=== PATIENT | male | born 1940 | race Caucasian/White ===

== ENCOUNTER 2024-09-24 19:27 | Emergency (ER) | payer OTHER, SELFPAY ==
[2024-09-24 19:30] VITALS: BP 168/80
--- NOTE | 2024-09-24 21:15 | ED.GENMED ---
History of Present Illness
General
Chief Complaint: Bowel Problem
Source: patient and family
Exam Limitations: none
Time Seen by Provider: 09/24/24 20:40
History of Present Illness
History of Present Illness:
84-year-old male presents emergency department due to constipation. He states he has not had normal bowel movement for the past 36 hours. He feels he is bound up and cannot go, like he has a baseball bat up there.
Past History
Past History
ED Past Medical History: COPD, HTN and Hypercholesterolemia
ED Past Surgical History: Appendectomy
Social History
Tobacco: Former smoker
Phy Exam
Physical Exam
Physical Exam:
Physical Exam
General: no apparent distress, not acutely ill
Neck: supple. no meningeal signs. normal posterior pharynx
Heart: s1/s2 regular rate and rhythm, no murmur. equal radial
pulses.
HEENT: Pupils equal round reactive to light, EOMI
Lungs: no acute respiratory distress. clear bilaterally
Abdomen: normal bowel sounds. not tender. no CVAT, rectal exam shows impacted stool, disimpacted
Neuro: alert and oriented. no focal neurological deficits cranial nerves II through XII intact
Skin: no rash
Psychiatric: well kept. interactive and cooperative
Extremities: no edema. no calf tenderness. negative homans. good distal pulses
Course
Orders/Labs/Results
Orders:
Orders
09/24/24 21:11
Magnesium Citrate [Citroma] 300 ml .ROUTE .STK-MED ONE
09/24/24 21:13
Magnesium Citrate [Citroma] 300 ml PO ONCE ONE
Vital Signs
Initial and Last Documented VS:
Initial Vital Signs
Temp Pulse Resp BP Pulse Ox
98.1 F 118 24 168/80 98
09/24/24 19:30 09/24/24 19:30 09/24/24 19:30 09/24/24 19:30 09/24/24 19:30
Last Documented Vital Signs
Temp Pulse Resp BP Pulse Ox
98.1 F 118 24 168/80 98
09/24/24 19:30 09/24/24 19:30 09/24/24 19:30 09/24/24 19:30 09/24/24 19:30
MDM/Problems Addressed
Differential Diagnosis Includes:
Bowel obstruction
MDM/Problems Addressed:
84-year-old male with fecal impaction, disimpacted and given magnesium citrate. Stable for discharge.
Chronic conditions affecting care: Cancer (colon)
*Pulse Oximetry
Patient hypoxic: no
*Critical Care Note
Total Time (30-74mins, 75-104mins- exclusive of procedures): Not Applicable
Data Reviewed
Further Testing Considered But Not Given:
ct a/p not indicated
Patient Management
Social determinants of health affecting care: Living situation and Strong social support
Escalation/DeEscalation of care consider admission/obs:
admit not indicated
ED Attending Note
-
Portions of this chart may have been created with voice recognition software.� Occasional wrong word or��sound alike� substitutions may have occurred due to the inherent limitations of voice recognition software.
Discharge Plan
Departure
Patient Disposition: Home (Routine Discharge)
Date of Disposition: 09/24/24
Time of Disposition: 21:14
Patient with high blood pressure during this ER visit?: Yes
Condition: Good
Discharge Problem:
Fecal impaction
Instructions: Constipation, Adult (DC), Fecal Impaction (DC), BLOOD PRESSURE
Prescriptions:
No Action
ezetimibe 10 MG tablet
10 mg PO DAILY
umeclidinium-vilanterol [Anoro Ellipta] 1 EACH blister with device
1 inh inhalation R DAILY
lisinopril 20 MG tablet
40 mg PO DAILY
amlodipine 5 MG tablet
5 mg PO DAILY
hydrochlorothiazide 12.5 MG tablet
12.5 mg PO DAILY
Activity Restrictions/Additional Instructions:
Follow up with primary care. Return for any concerns.
Interventions
Interventions:
*Risk Screen - Suicide Last Done: 09/24/24 19:30
*Neglect/Abuse Screening Last Done: 09/24/24 19:30
*Nursing Disposition Last Done: 09/24/24 21:37
[facility]ed[facility] Assessment Last Done: 09/24/24 21:37
Discharge Date and Time
Discharge Date/Time: 09/24/24 21:38
Print Language: BANGLADESHI
[2024-09-24] MEDS: CITROMA 300 ML PO (21:22)
== END 2024-09-24 21:38 | disposition home or self-care (01) ==
LOC: EMR 19:27
PROVIDERS: EMERGENCY PHYSICIAN Emergency Medicine; FAMILY PHYSICIAN Nurse Practitioner Family
DX: K56.41 Fecal impaction (principal); J44.9 Chronic obstructive pulmonary disease, unspecified; I10 Essential (primary) hypertension; E78.00 Pure hypercholesterolemia, unspecified; Z87.891 Personal history of nicotine dependence; C18.9 Malignant neoplasm of colon, unspecified
CPT/HCPCS: 99283

== ENCOUNTER 2025-08-24 12:15 | Emergency (ER) | payer OTHER, SELFPAY ==
[2025-08-24 12:21] VITALS: BP 147/68
[2025-08-24 12:33] VITALS: BP 162/66
[2025-08-24 12:50] LABS: Hematocrit 43.9 % (39.0-52.0); Hemoglobin 15.3 g/dL (13.0-18.0); Mean Corp Hgb Conc. 34.9 g/dL (33.0-37.0); Mean Corpuscular Volume 86.4 fL (80.0-94.0); Nucleated Red Blood Cells % 0 % (-); Platelet Count 131 10^3/uL (130-400); Red Cell Dist. Width 12.5 % (11.5-14.5)
[2025-08-24 13:03] LABS: ALT (SGPT) 35 U/L (0-50); AST (SGOT) 31 U/L (17-59); Albumin 4.2 g/dl (3.5-5.0); Alkaline Phosphatase 79 U/L (38-126); Blood Urea Nitrogen 38 mg/dl (9-20); Calcium 8.7 mg/dl (8.4-10.2); Carbon Dioxide 30 mmol/L (22-30); Chloride 91 mmol/L (98-107); Estimated Creatinine Clearance 55 ml/min; Glucose 218 mg/dl (70-99); Potassium 4.2 mmol/L (3.5-5.1); Sodium 129 mmol/L (135-145); Total Protein 6.7 g/dl (6.3-8.2); eGFR > 60.00
--- NOTE | 2025-08-24 13:08 | ED.GENMED ---
History of Present Illness
General
Chief Complaint: Breathing Problem
Time Seen by Provider: 08/24/25 12:35
History of Present Illness
History of Present Illness:
85-year-old male with history of high blood pressure, diabetes, COPD presenting for difficulty breathing. Patient reports cough and increased work of breathing for the past 5 days. Denies any fever. Cough has been nonproductive, has difficulty
expectorating. Denies any associated chest pain. Denies known sick contacts, however feels symptoms started after going to an urgent care on Wednesday for sciatica. He has been on antibiotics for the sciatica. Denies abdominal pain or GI symptoms.
Denies any O2 requirements. Denies additional acute medical complaints
Past History
Past History
ED Past Medical History: COPD, HTN and Hypercholesterolemia
ED Past Surgical History: Appendectomy
Social History
Tobacco: Former smoker
Phy Exam
Physical Exam
Physical Exam:
General: Well-appearing, no clinical signs of dehydration, nontoxic and in no acute distress
HEENT: protecting airway
Neck: appears supple
CV: Normal heart rate, regular rhythm
Resp: No accessory muscle use, active cough, rhonchi and wheezing bilaterally
Abd: No distention
Extremities: No deformities, no swelling
Neuro: alert, no focal neurologic deficit
: deferred
Rectal: deferred
Psych: Normal affect
Skin: Intact
Scores
Heart Failure Risk
Heart Failure Risk Score: Not Applicable
Course
Orders/Labs/Results
Orders:
Orders
08/24/25 12:29
Electrocardiogram (*1) Urgent
Reason for Study: Shortness of Breath
CXR2 [CR Chest - 2 Views ] Urgent
Comment:
Reason For Exam: COUGH sob
08/24/25 12:30
EKG- Treatment ONCE
08/24/25 12:42
Electrocardiogram (*1) Urgent
Reason for Study: Other
Other Reason for Exam: Respiratory Distress
08/24/25 12:43
Complete Blood Count/With Diff Urgent
Comprehensive Metabolic Panel Urgent
NT-proBNP Urgent
08/24/25 12:55
Ipratropium/Albuterol Sulfate [Duoneb] 3 ml INH R NOW STA
08/24/25 13:25
COVID-19 Antigen Urgent
Source: Nasal Swab
Influenza A+B Rapid Molecular Urgent
COURTNEY Source: Nasal Swab
Specimen Description:
Abnormal Lab Results
08/24/25
12:43
WBC 11.6 H 10^3/uL
(4.8-10.8)
Abs Immat Gran (auto) 0.1 H 10^3/uL
(0-0.05)
Absolute Neuts (auto) 10.2 H 10^3/uL
(1.4-6.5)
Absolute Lymphs (auto) 0.6 L 10^3/uL
(1.2-3.4)
Absolute Monos (auto) 0.7 H 10^3/uL
(0.1-0.6)
Neutrophils % 87.9 H %
(42.2-75.2)
Lymphocytes % 4.9 L %
(20.5-51.1)
Sodium 129 L mmol/L
(135-145)
Chloride 91 L mmol/L
(98-107)
BUN 38 H mg/dl
(9-20)
Glucose 218 H mg/dl
(70-99)
08/24/25 12:43
08/24/25 12:43
Vital Signs
Initial and Last Documented VS:
Initial Vital Signs
Temp Pulse BP Pulse Ox
97.8 F 107 147/68 97
08/24/25 12:21 08/24/25 12:21 08/24/25 12:21 08/24/25 12:21
Last Documented Vital Signs
Temp Pulse Resp BP Pulse Ox
97.8 F 101 24 130/69 94
08/24/25 12:21 08/24/25 15:46 08/24/25 15:46 08/24/25 15:00 08/24/25 15:46
MDM/Problems Addressed
MDM/Problems Addressed:
85-year-old male with history of COPD presenting for cough and shortness of breath. Vital signs on arrival are significant for mild tachycardia.
On exam, patient in no respiratory distress. Wheezing and rhonchi bilaterally. Concern for COPD exacerbation versus possible underlying pneumonia. Plan for laboratory analysis and chest x-ray imaging as well as viral swabs. Will start on DuoNeb.
15:10 - Patient is positive for the flu. No obvious infiltrate on chest x-ray. Patient ambulated without any desaturation, no increased work of breathing. Ultimately feel stable for discharge. Given patient's cough with known COPD, will start on
azithromycin, steroids, and inhaler. Otherwise advised supportive therapy for influenza. Patient out of the window for Tamiflu. Return precautions discussed and patient verbalized understanding
*Pulse Oximetry
SaO2: 96
Oxygen Mode of Delivery: Room air
Patient hypoxic: no
*Critical Care Note
Total Time (30-74mins, 75-104mins- exclusive of procedures): Not Applicable
ED Attending Note
-
Portions of this chart may have been created with voice recognition software.� Occasional wrong word or��sound alike� substitutions may have occurred due to the inherent limitations of voice recognition software.
Discharge Plan
Departure
Patient Disposition: Home (Routine Discharge)
Date of Disposition: 08/24/25
Time of Disposition: 15:18
Patient with high blood pressure during this ER visit?: No
Condition: Good
Discharge Problem:
Influenza A, COPD exacerbation
Instructions: Flu in adults (DC), COPD exacerbation (DC)
Prescriptions:
New
albuterol sulfate [Ventolin HFA] 90 mcg/actuation HFA aerosol inhaler
2 puff inhalation Q6H PRN (Reason: shortness of breath or wheezing) Qty: 8.5 0RF
prednisone 50 mg tablet
50 mg PO DAILY 5 Days Qty: 5 0RF
azithromycin [Zithromax Z-Chan] 250 mg tablet
250 mg PO DAILY 6 Days Qty: 6 0RF
No Action
acetaminophen [Tylenol Extra Strength] 500 mg Tablet
1,000 mg PO DAILYPRN PRN (Reason: mild pain)
methylprednisolone 4 mg Tablets,Dose Pack
4 mg PO .TAPER
Patient Comments:
08/24/2025, pt. is using an older prescription of this med. and has been taking 1 tab daily for the past 3 days since completing his recent methyprednisolone dose pack.
lisinopril 40 mg Tablet
40 mg PO DAILY
Patient Comments:
08/24/2025, pt. takes whenever they remember to.
rosuvastatin 5 mg Tablet
5 mg PO DAILY
Patient Comments:
08/24/2025, pt. takes whenever they remember to.
metformin 500 mg Tablet Extended Release 24hr
0 mg PO .SEE BELOW
Patient Comments:
08/24/2025, prescribed for pt. to take 2 tabs in the morning and 1 tab in the evening; pt. only takes 2 tabs when he remembers to take the rest of his meds.
Referrals:
Connie Galindo CRNP [Family Provider, Family Practice]
Activity Restrictions/Additional Instructions:
You were seen in the emergency department for cough and shortness of breath
You were found to have influenza. You were started on azithromycin as well as prednisone due to your known history of COPD. Please continue Tylenol and Motrin as needed for fever.
Please follow-up closely with your primary care physician.
Return to the emergency department for any worsening of your symptoms, or any development of chest pain, difficulty breathing, abdominal pain with persistent vomiting and inability to tolerate food or liquid by mouth (concern for dehydration),
weakness, headache or confusion, fever greater than 100.4, or any additional symptoms that are concerning to you.
Thank you for choosing [facility].
Interventions
Interventions:
*General Assessment Last Done: 08/24/25 15:52
*Neglect/Abuse Screening Last Done: 08/24/25 15:52
*ED COVID-19 Vaccine History Last Done: 08/24/25 12:21
*ED Influenza Vaccine History Last Done: 08/24/25 12:21
[facility] Fall Risk Assessment Tool Last Done: 08/24/25 13:35
*Risk Screen - Suicide (C-SSRS) Last Done: 08/24/25 12:21
*Nursing Disposition Last Done: 08/24/25 15:53
ED- Cardiac Assessment Last Done: 08/24/25 12:42
ED- Pulmonary Assessment Last Done: 08/24/25 12:42
Discharge Date and Time
Discharge Date/Time: 08/24/25 16:03
Print Language: ICELANDIC
[2025-08-24] MEDS: DUONEB 3 ML INH (13:24)
[2025-08-24 13:27] VITALS: BP 121/76
[2025-08-24 13:58] LABS: COVID-19 Antigen Negative (Negative)
[2025-08-24 14:00] VITALS: BP 137/116
[2025-08-24 15:00] VITALS: BP 130/69
== END 2025-08-24 16:03 | disposition home or self-care (01) ==
LOC: EMR 12:15
PROVIDERS: EMERGENCY PHYSICIAN Student in an Organized Health Care Education/Training Program; FAMILY PHYSICIAN Nurse Practitioner Family
DX: J10.1 Influenza due to other identified influenza virus with other respiratory manifestations (principal); J44.1 Chronic obstructive pulmonary disease with (acute) exacerbation; E11.9 Type 2 diabetes mellitus without complications; I10 Essential (primary) hypertension; E78.00 Pure hypercholesterolemia, unspecified; M54.30 Sciatica, unspecified side; Z79.84 Long term (current) use of oral hypoglycemic drugs; Z87.891 Personal history of nicotine dependence
CPT/HCPCS: 99284; 94640; 71046; 80053; 83880; 85025; 87502; 87811; 93005

== ENCOUNTER 2025-08-25 13:15 | Emergency (ER) | payer OTHER, SELFPAY ==
[2025-08-25 13:15] VITALS: BMI 23.0
[2025-08-25 13:17] VITALS: BP 150/88
[2025-08-25] MEDS: DUONEB 3 ML INH (14:45)
--- NOTE | 2025-08-25 15:42 | ED.GENMED ---
History of Present Illness
General
Chief Complaint: Breathing Problem
Time Seen by Provider: 08/25/25 14:31
History of Present Illness
History of Present Illness:
Jeffrey is an 85-year-old male who was seen in the emergency department yesterday for influenza A and a COPD exacerbation and sent home on azithromycin, prednisone and given an inhaler. Returning today for continued shortness of breath. Denies any
worsening of his symptoms is just not feeling better. Has not taken his prednisone that was prescribed yesterday and attempted to use the inhaler but could not figure out how to use it. No new symptoms
Past History
Past History
ED Past Medical History: COPD, HTN and Hypercholesterolemia
ED Past Surgical History: Appendectomy
Social History
Tobacco: Former smoker
Phy Exam
General Physical Exam
General Presentation: well appearing and no apparent distress
General Skin: warm and dry
General Habitus: normal
General Mental: alert
General Hydration: appears well hydrated
ENT Exam
ENT Exam: EOMI, pharynx normal, neck supple and normocephalic
Eye Exam
Eye Exam: PERRL, cornea clear and conjunctiva normal
Cardiovascular Exam
Cardiovascular Exam: regular rate/rhythm, no edema, no murmur and normal peripheral pulses
Pulmonary Exam
Pulmonary Exam: lungs clear, no respiratory distress, no rales, no crackles, no rhonchi, no stridor, no cough and generalized wheezing
Gastrointestinal Exam
Gastrointestinal Exam: normal bowel sounds, non tender, soft, no organomegaly, no pulsatile mass and non distended
Neurological Exam
Neurological Exam: alert, oriented x3, no motor deficits and speech normal
Musculoskeletal Exam
Musculoskeletal Exam: full ROM and no edema
Skin Exam
Skin Exam: normal color, warm/dry, no rash and no petechia
Psychiatric Exam
Psychiatric Exam: normal mood/affect
Scores
Heart Failure Risk
Heart Failure Risk Score: Not Applicable
Course
Orders/Labs/Results
Orders:
Orders
08/25/25 14:39
Ipratropium/Albuterol Sulfate [Duoneb] 3 ml INH R NOW STA
Vital Signs
Initial and Last Documented VS:
Initial Vital Signs
Pulse Resp BP
110 18 150/88
08/25/25 13:17 08/25/25 13:17 08/25/25 13:17
Last Documented Vital Signs
Temp Pulse Resp BP Pulse Ox
36.7 C 74 20 150/88 96
08/25/25 13:21 08/25/25 15:41 08/25/25 15:41 08/25/25 13:17 08/25/25 15:41
MDM/Problems Addressed
Differential Diagnosis Includes:
Patient is known influenza A positive. Denies any new or worsening symptoms. Is just still short of breath and could not figure out how to use inhaler. He was given a DuoNeb treatment in the ER with improvement in his wheezing and subjective
shortness of breath. Oxygen saturation remained above 90%. Port of care for the flu and COPD exacerbation discussed with patient and his son. Instructed them to take all medications that were prescribed as directed. Return precautions discussed.
Follow-up with primary care doctor on Wednesday. RN provided education on how to utilize inhaler.
*Pulse Oximetry
SaO2: 96
Oxygen Mode of Delivery: Room air
Patient hypoxic: no
*Critical Care Note
Total Time (30-74mins, 75-104mins- exclusive of procedures): Not Applicable
ED Attending Note
-
Portions of this chart may have been created with voice recognition software.� Occasional wrong word or��sound alike� substitutions may have occurred due to the inherent limitations of voice recognition software.
Discharge Plan
Departure
Patient Disposition: Home (Routine Discharge)
Date of Disposition: 08/25/25
Time of Disposition: 15:42
Patient with high blood pressure during this ER visit?: No
Discharge Problem:
Influenza A, COPD (chronic obstructive pulmonary disease)
Prescriptions:
No Action
acetaminophen [Tylenol Extra Strength] 500 mg Tablet
1,000 mg PO DAILYPRN PRN (Reason: mild pain)
methylprednisolone 4 mg Tablets,Dose Pack
4 mg PO .TAPER
Patient Comments:
08/24/2025, pt. is using an older prescription of this med. and has been taking 1 tab daily for the past 3 days since completing his recent methyprednisolone dose pack.
lisinopril 40 mg Tablet
40 mg PO DAILY
Patient Comments:
08/24/2025, pt. takes whenever they remember to.
rosuvastatin 5 mg Tablet
5 mg PO DAILY
Patient Comments:
08/24/2025, pt. takes whenever they remember to.
metformin 500 mg Tablet Extended Release 24hr
0 mg PO .SEE BELOW
Patient Comments:
08/24/2025, prescribed for pt. to take 2 tabs in the morning and 1 tab in the evening; pt. only takes 2 tabs when he remembers to take the rest of his meds.
albuterol sulfate [Ventolin HFA] 90 mcg/actuation HFA aerosol inhaler
2 puff inhalation Q6H PRN (Reason: shortness of breath or wheezing) Qty: 8.5 0RF
prednisone 50 mg tablet
50 mg PO DAILY 5 Days Qty: 5 0RF
azithromycin [Zithromax Z-Chan] 250 mg tablet
250 mg PO DAILY 6 Days Qty: 6 0RF
Activity Restrictions/Additional Instructions:
You should take all medications that are prescribed to you as directed. Continue to use the inhaler for any shortness of breath or wheezing. Return to the ER if you develop any chest pain or shortness of breath that is not improved after using
your inhaler. Follow-up with your primary care doctor next week.
Interventions
Interventions:
*General Assessment Last Done: 08/25/25 13:17
*Neglect/Abuse Screening Last Done: 08/25/25 13:17
*ED COVID-19 Vaccine History Last Done: 08/25/25 13:17
*ED Influenza Vaccine History Last Done: 08/25/25 13:17
[facility] Fall Risk Assessment Tool Last Done: 08/25/25 13:15
*Risk Screen - Suicide (C-SSRS) Last Done: 08/25/25 13:17
*Nursing Disposition Last Done: 08/25/25 15:41
ED- Cardiac Assessment Last Done: 08/25/25 14:20
ED- Pulmonary Assessment Last Done: 08/25/25 14:20
Discharge Date and Time
Print Language: INDONESIAN
== END 2025-08-25 15:57 | disposition home or self-care (01) ==
LOC: EMR 13:15
PROVIDERS: EMERGENCY PHYSICIAN Emergency Medicine; FAMILY PHYSICIAN Nurse Practitioner Family
DX: J10.1 Influenza due to other identified influenza virus with other respiratory manifestations (principal); J44.9 Chronic obstructive pulmonary disease, unspecified; E78.00 Pure hypercholesterolemia, unspecified; I10 Essential (primary) hypertension; Z87.891 Personal history of nicotine dependence
CPT/HCPCS: 94640; 99283